=== PATIENT | male | born 1960 | race Caucasian/White ===

== ENCOUNTER 2018-03-23 10:23 | Emergency (ER) | payer MEDICAID, SELFPAY ==
[2018-03-23 10:23] VITALS: BP 154/94; PULSE 90; RESP 18; TEMP 36.6; O2SAT 99; BMI 45.3
[2018-03-23 10:49] LABS: Mucous, Urine 0 SEEN /hpf (<or=2+); Squamous Epithelial Cells - UA 0 SEEN /hpf (0-5)
--- NOTE | 2018-03-23 10:50 | NURSING ---
CALLED [facility] FOR OLD RECORDS FROM LAST WEEK. LEFT MESSAGE ON MEDICAL RECORDS NUMBER
--- NOTE | 2018-03-23 10:53 | ED.VISSUMM ---
- ER Visit Summary Date of Service: 03/23/18 Chief Complaint: Right Flank pain History of Present Illness: The patient is a 58 M who has right flank pain. Been ongoing for 4 days. He was seen at [place] on and on Friday for the same symptoms. He was given Percocet. He states he was diagnosed with kidney cysts and a kidney stone. The Percocet is not helping at home. He states he did have some hematuria this morning. He denies any fevers. He has not seen a urologist for this. Physical Examination: Vital signs reviewed. HEENT exam unremarkable. Heart is regular rate and rhythm without murmurs. Lungs are clear to auscultation. Abdomen is soft and nontender. Extremities reveal no edema. Skin exam normal. Neurologic exam normal. Test Results: Laboratory studies are unremarkable except for creatinine 1.41. Urinalysis reveals blood with no infection Emergency Department Course and Treatment: Patient feels better after Toradol IV. He states he is out of Percocet at home. [facility] report shows only 1 prescription of that oxycodone in the past 2 years. I will give him a refill of 8 more. I will also give him naproxen for home. I will give him urology follow-up. Treatment Plan: [] Disposition: Discharge Impression: Ureterolithiasis This note was generated with [employer] dictation software. It may contain incorrect words, spelling, and punctuation that were not noted in review of the chart prior to signing ED Disposition - Plan for ED Patient: Chief Complaint: Flank Pain Referrals: [facility] Doctor,Out of [NON-STAFF] -
[2018-03-23 10:55] LABS: Color, Urine Yellow (Yellow); Glucose, Dipstick Normal (Normal); Ketone-Dipstick Negative (Negative); Leukocyte Esterase-Dipstick 25 /ul (Negative); Nitrite-Dipstick Negative (Negative); Occult Blood-Urine 250 /ul (Negative); Protein-Dipstick 30 mg/dl (Negative); Urine Bilirubin Dipstick Negative (Negative); Urine Clarity Sl. Cloudy (Clear); Urine Urobilinogen Normal (Normal); Urine pH 6.5 (5.0 - 8.0)
--- NOTE | 2018-03-23 10:58 | ED.DCSUM_ITS ---
- ER Visit Summary Date of Service: 03/23/18 Chief Complaint: Right Flank pain History of Present Illness: The patient is a 58 M who has right flank pain. Been ongoing for 4 days. He was seen at [facility] on and on Friday for the same symptoms. He was given Percocet. He states he was diagnosed with kidney cysts and a kidney stone. The Percocet is not helping at home. He states he did have some hematuria this morning. He denies any fevers. He has not seen a urologist for this. Physical Examination: Vital signs reviewed. HEENT exam unremarkable. Heart is regular rate and rhythm without murmurs. Lungs are clear to auscultation. Abdomen is soft and nontender. Extremities reveal no edema. Skin exam normal. Neurologic exam normal. Test Results: Laboratory studies are unremarkable except for creatinine 1.41. Urinalysis reveals blood with no infection Emergency Department Course and Treatment: Patient feels better after Toradol IV. He states he is out of Percocet at home. OAR[facility] report shows only 1 prescription of that oxycodone in the past 2 years. I will give him a refill of 8 more. I will also give him naproxen for home. I will give him urology follow-up. Treatment Plan: [] Disposition: Discharge Impression: Ureterolithiasis This note was generated with [employer] dictation software. It may contain incorrect words, spelling, and punctuation that were not noted in review of the chart prior to signing ED Disposition - Plan for ED Patient: Chief Complaint: Flank Pain Referrals: [facility] Doctor,Out of [NON-STAFF] -
[2018-03-23 10:59] LABS: Absolute Lymphocyte Count 1.61 X10^3/ul (0.83-4.51); Absolute Neutrophil Count 7.8 X10^3/uL (2.0-7.7); Basophil# 0.03 X10^3/uL; Basophil% 0.3 % (0-1); Eosinophil# 0.32 X10^3/uL; Eosinophils% 3.1 % (0-5); Hematocrit 39.9 % (40-54); Hemoglobin 13.4 g/dl (13.0-16.5); Lymphocyte # 1.61 X10^3/ul (4.0); Lymphocyte % 15.4 % (19-41); Mean Corp Hgb Conc 33.6 g/gl (32-36); Mean Corpuscular Hgb 28.6 pg (27.0-32.0); Mean Corpuscular Volume 85.1 fL (80-94); Mean Platelet Vol. 8.2 fl (6.2-12.0); Monocyte# 0.66 X10^3/uL; Monocyte% 6.3 % (0-10); Neutrophil # 7.78 X10^3/uL (2.7-7.7); Neutrophil % 74.6 % (47-70); Platelet Count 316 K/mm3 (150-450); RBC Distribution Width CV 13.3 % (11.6-14.6); RBC Distribution Width SD 40.9 fl (35.1-43.9); Red Blood Count 4.69 M/mm3 (4.6-6.2); White Blood Count 10.4 K/mm3 (4.4-11.0)
[2018-03-23 11:01] LABS: Red Blood Cells-Urine 50-100 SEEN /hpf (0-5); White Blood Cells 0-5 SEEN /hpf (0-5)
[2018-03-23] MEDS: 0.9% Normal Saline 1,000 ML 999 ML IV (11:01)
[2018-03-23] MEDS: Ketorolac 30 MG/ML Syringe IV (11:01)
[2018-03-23 11:02] LABS: Bacteria RARE /hpf (None Seen)
[2018-03-23 11:02] LABS: POSITIVE COUNT NO; POSITIVE DIFFERENTIAL NO; POSITIVE MORPHOLOGY NO
[2018-03-23 11:10] LABS: Anion Gap 9 (5-15); BUN 17 mg/dL (7-18); BUN/Creat Ratio 12.1 RATIO (10-20); Calcium,Total 8.9 mg/dL (8.5-10.1); Chloride 99 mmol/L (98-107); Creatinine, Serum 1.41 mg/dL (0.70-1.30); EST Glomerular Filtration Rate 55 mL/min (>60); Est Glom Filt Rate - Afr Amer 67 mL/min (>60); Estimated Creatinine Clearance 63.44 ml/min; Glucose 145 mg/dL (74-106); Potassium 4.3 mmol/L (3.5-5.1); Sodium Level 137 mmol/L (136-145)
--- NOTE | 2018-03-23 11:17 | NURSING ---
FAXED RELEASE OF INFO TO [facility]
--- NOTE | 2018-03-23 11:32 | NURSING ---
LEFT MESSAGE ON MR PHONE AT [facility] FOR OLD RECORDS FROM [facility] LAST WEEK
--- NOTE | 2018-03-23 11:56 | NURSING ---
CALLED [facility] FOR CHARTS FROM LAST WEEK
--- NOTE | 2018-03-23 12:14 | ED.DEP ---
ED Disposition - Plan for ED Patient: Disposition: Home or Assisted Living Chief Complaint: Flank Pain Instructions: ED Stone Renal W Colic Prescriptions: Oxycodone HCl/Acetaminophen [Percocet 5/325] 1 tab PO Q6H PRN PRN 3 Days #8 tab PRN Reason: Pain Naproxen [Naprosyn] 500 mg PO BID PRN #20 tab Referrals: [facility],Out of [NON-STAFF] -
== END 2018-03-23 12:28 | disposition home or self-care (01) ==
PROVIDERS: Emergency Provider Emergency Medicine; Family Provider Student in an Organized Health Care Education/Training Program; PCP Student in an Organized Health Care Education/Training Program
DX: N20.1 Calculus of ureter (principal); E11.9 Type 2 diabetes mellitus without complications; Z87.442 Personal history of urinary calculi; Z79.82 Long term (current) use of aspirin; Z79.84 Long term (current) use of oral hypoglycemic drugs; Z79.899 Other long term (current) drug therapy
CPT/HCPCS: 80048; 81001; 85025; 96361; 96374; 99283; J7030; A4216

== ENCOUNTER → 2019-08-25 11:02 | Outpatient (CLI) | payer MEDICAID, SELFPAY ==
[2019-07-27 12:54] VITALS: BMI 45.6
--- NOTE | 2019-08-25 11:03 | ECHOCS_ITS ---
Version 2 Reason For Study: Dyspnea/SOB Procedure This was a 2D Doppler, Color Flow transthoracic echocardiogram. Technically difficult due to patient body habitus. Contrast injection was performed. Exam performed in department. Left Ventricle Normal LV size. Left ventricular systolic function is normal. The estimated ejection fraction is 55 %. Transmitral and pulmonary venous doppler flow suggestive of impaired relaxation of left ventricle. No regional wall motion abnormalities noted. Mitral Valve Mitral valve not well visualized. Tricuspid Valve The tricuspid valve is not well visualized. Aortic Valve The aortic valve is not well visualized. Pulmonic Valve The pulmonic valve is not well visualized. Great Vessels Mildly dilated aortic root. The pulmonary is not well visualized. Pericardium/Pleural No pericardial effusion. Medication 22 gauge I.V. with prn adaptor inserted into right arm. Diluted definity 5ml given slow IV push to enhance endocardial definition. MMode/2D Measurements & Calculations LVIDd: 5.6 cm IVSd: 1.1 cm Ao root diam: 3.8 cm LVIDs: 3.1 cm LVPWd: 0.98 cm FS: 44.6 % Time Measurements MV dec time: 0.19 sec Doppler Measurements & Calculations MV E max george: 56.8 cm/sec Lat Peak E' George: 7.5 cm/sec Med Peak E' George: 10.3 cm/sec MV A max george: 72.7 cm/sec E/E' lat: 7.6 E/E' med: 5.5 MV E/A: 0.78 MV V2 max: 83.5 cm/sec MV P1/2t max george: 55.0 cm/sec Ao V2 max: 104.0 cm/sec MV max P.8 mmHg MV P1/2t: 95.7 msec Ao max P.3 mmHg MV V2 mean: 41.9 cm/sec MV mean P.83 mmHg MV dec slope: 168.3 cm/sec2 MV V2 VTI: 19.5 cm MVA(P1/2t): 2.3 cm2 LV V1 max: 93.2 cm/sec PA V2 max: 93.6 cm/sec LV V1 max P.5 mmHg Interpretation Summary Normal LV size. Left ventricular systolic function is normal. The estimated ejection fraction is 55 %. Transmitral and pulmonary venous doppler flow suggestive of impaired relaxation of left ventricle Contrast injection was performed. The study was technically limited. The study was technically difficult. Ordering Physician: William Sebastian Referring Physician: William Sebastian Performed By: Richard Rocha RCS
== END ==
PROVIDERS: PCP Student in an Organized Health Care Education/Training Program; Referring Provider Internal Medicine Cardiovascular Disease; Visit Provider Internal Medicine Cardiovascular Disease
DX: I42.8 Other cardiomyopathies (principal)
CPT/HCPCS: 93306; Q9957; A4216; C8929